=== PATIENT | male | born 1965 | race Caucasian/White ===

== ENCOUNTER 2017-01-11 21:07 | Inpatient (IN) | payer OTHER ==
[~2017-01-11] VITALS: Ht 177.8 cm; Wt 74.8 kg
[~2017-01-11 21:07] MED LIST: Z.0.NO CURRENT MEDS
[2017-01-11 21:37] VITALS: BP 139/90; PULSE 89; RESP 16; TEMP 98.5; O2SAT 100
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
[2017-01-11] MEDS ORDERED: TETANUS/DIPHTHERIA TOXOID ADULT 0.5 ML VIAL IM ONE (21:45)
[2017-01-11] MEDS ORDERED: IBUP400T20 PO (22:18)
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
[2017-01-11 23:00] VITALS: O2SAT 100
[2017-01-11] MEDS ORDERED: PROPOFOL 200 MG/20 ML AMP IV ONE (23:00)
[2017-01-11 23:10] VITALS: BP 142/86; PULSE 77; RESP 18; O2SAT 99
[2017-01-12] MEDS ORDERED: SODIUM CHLOR 0.9% 1000 ML INJ 1,000 ML IV SCH ×2 (00:01→00:54)
--- NOTE | 2017-01-12 00:03 | RADRPT ---
EXAM DATE/TIME: 01/11/2017 23:41 [facility] COMPARISON: HAND LEFT COMPLETE ([id number]), January 11, 2017, 22:16. INDICATIONS : Post reduction MEDICAL HISTORY : None. SURGICAL HISTORY : None. ENCOUNTER: Initial ACUITY: 1 day PAIN SCORE: 10/10 LOCATION: Left wrist FINDINGS: There is improvement in alignment of the previously described distal radius fracture and also improve ment in alignment at the wrist joint. Ulna styloid avulsion fracture again noted. CONCLUSION: 1. Improvement in alignment of previous fracture dislocation at the distal radius with overlying cast material present. Partice Gonzalez MD on January 12, 2017 at 0:00 Board Certified Radiologist. This report was verified electronically.
[2017-01-12 01:00] VITALS: BP 124/81; PULSE 77; RESP 16; O2SAT 98
[2017-01-12] MEDS ORDERED: NALOXONE HCL 0.4 MG/ML AMP IV PRN (01:00)
[2017-01-12] MEDS ORDERED: MAGNESIUM HYDROXIDE SUSP 30 ML CUP PO PRN ×2 (01:00→13:30)
[2017-01-12] MEDS ORDERED: DOCUSATE SODIUM 100 MG CAP PO SCH (01:00)
[2017-01-12] MEDS ORDERED: ACETAMINOPHEN/HYDROcodone 325 MG/5 MG TAB PO PRN (01:00)
[2017-01-12] MEDS ORDERED: SODIUM CHLORIDE 0.9% FLUSH 10 ML FLUSH IV FLUSH PRN (01:00)
[2017-01-12] MEDS ORDERED: MORPHINE SULFATE 4 MG/ML INJ IV PRN (01:00)
[2017-01-12] MEDS ORDERED: ACETAMINOPHEN 325 MG TAB PO PRN (01:00)
[2017-01-12] MEDS ORDERED: BISACODYL 10 MG SUPP RECTAL PRN (01:00)
[2017-01-12] MEDS ORDERED: ONDANSETRON HCL 4 MG/2 ML VIAL IVP PRN ×2 (01:00→13:30)
[2017-01-12] MEDS ORDERED: SENNOSIDES 8.6 MG TAB PO PRN (01:00)
[2017-01-12] MEDS ORDERED: ACETAMINOPHEN/HYDROcodone 325 MG/10 MG TAB PO PRN ×3 (01:00→13:30)
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
[2017-01-12 02:50] VITALS: BP 119/69; PULSE 73; RESP 20; TEMP 99.1; O2SAT 98
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
[2017-01-12 07:25] VITALS: BP 119/71; PULSE 73; RESP 17; TEMP 99.2; O2SAT 94
[2017-01-12] MEDS ORDERED: SODIUM CHLORIDE 0.9% FLUSH 10 ML FLUSH IV FLUSH SCH (09:00)
[2017-01-12] MEDS ORDERED: LACTATED RINGER'S 1000 ML INJ 1,000 ML IV ONE (12:00)
[2017-01-12] MEDS ORDERED: ePHEDrine/NS 25 MG/5 ML SYR IV ONE (12:00)
[2017-01-12] MEDS ORDERED: PROPOFOL 200 MG/20 ML AMP IV ONE (12:00)
[2017-01-12] MEDS ORDERED: ceFAZolin 2 GM PREMIX 50 ML ONE (12:06)
[2017-01-12] MEDS ORDERED: GENTAMICIN SULFATE 80 MG/2 ML VIAL ONE (12:06)
[2017-01-12] MEDS ORDERED: MIDAZOLAM HCL 2 MG/2 ML VIAL ONE (12:16)
[2017-01-12] MEDS ORDERED: MORPHINE SULFATE 8 MG/ML INJ IV PUSH PRN (13:30)
[2017-01-12] MEDS ORDERED: SODIUM CHLORIDE 0.9% FLUSH 5 ML FLUSH IVF PRN (13:30)
[2017-01-12] MEDS ORDERED: diphenhydrAMINE HCL 25 MG CAP PO PRN (13:30)
[2017-01-12] MEDS ORDERED: ZOLPIDEM TARTRATE 5 MG TAB PO PRN (13:30)
[2017-01-12] MEDS ORDERED: Post-op Orders (for Pharmacy) MISC XX ONE (13:30)
[2017-01-12] MEDS ORDERED: HYDR-3366 PO (13:32)
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
[2017-01-12] MEDS ORDERED: *morphine SULFATE 8 MG/ML PERIprocedure ONLY ONE ×2 (13:55→14:10)
[2017-01-12] MEDS ORDERED: ACETAMINOPHEN 1000 MG/100 ML VIAL IV ONE (13:55)
[2017-01-12] MEDS ORDERED: *ONDANSETRON 4 MG VIAL PERIprocedural Use ONLY ONE (13:55)
[2017-01-12] MEDS ORDERED: DO NOT ADM ANY ANTICOAGULANT DRUGS PRN (13:57)
[2017-01-12] MEDS ORDERED: fentaNYL CITRATE 250 MCG/5 ML AMP ONE (13:59)
--- NOTE | 2017-01-12 14:51 | RADRPT ---
EXAM DATE/TIME: 01/12/2017 13:18 [place] COMPARISON: No previous studies available for comparison. INDICATIONS : ORIF left wrist. MEDICAL HISTORY : None. SURGICAL HISTORY : None. ENCOUNTER: Subsequent ACUITY: 2 days PAIN SCORE: Non-responsive. LOCATION: Left wrist. FINDINGS: 2 intraoperative spot images of the wrist demonstrating volar internal fixation plate and multiple tr ansfixing screws. Alignment is near anatomic. CONCLUSION: Intraoperative images showing distal radius fracture with internal fixation hardware in place. Kameron Lindquist MD on January 12, 2017 at 14:48 Board Certified Radiologist. This report was verified electronically.
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
[2017-01-12] MEDS: LACTATED RINGER'S 1000 ML INJ 1,000 ML IV SCH ×2 (17:06→19:45)
[2017-01-12] MEDS: DOCUSATE SODIUM 50 MG/SENNA 8.6 MG TAB PO SCH (19:48)
[2017-01-12] MEDS: SODIUM CHLORIDE 0.9% FLUSH 5 ML FLUSH IVF SCH (19:48)
[2017-01-12 19:53] VITALS: BP 120/77; PULSE 62; RESP 18; TEMP 98.1; O2SAT 100
[2017-01-12 21:15] VITALS: O2SAT 100
[2017-01-13 00:40] VITALS: BP 109/67; PULSE 70; RESP 16; TEMP 99.4; O2SAT 95
[2017-01-13 04:00] VITALS: BP 114/66; PULSE 69; RESP 16; TEMP 99.7; O2SAT 98
[2017-01-13 06:41] LABS: AUTOMATED NEUTROPHIL # 5.8 TH/MM3 (1.8-7.7); BASOPHIL % 0.4 % (0.0-2.0); EOSINOPHIL # 0.1 TH/MM3 (0-0.4); EOSINOPHIL % 1.6 % (0.0-4.0); HEMATOCRIT 35.9 % (39.0-51.0); HEMO FLAGS DIFF FINAL; LYMPH % 15.9 % (9.0-44.0); LYMPHOCYTE # 1.3 TH/MM3 (1.0-4.8); MEAN CELL VOLUME 85.5 FL (80.0-100.0); MEAN CORPUSCULAR HEMOGLOBIN 29.5 PG (27.0-34.0); MEAN CORPUSCULAR HGB CONC 34.5 % (32.0-36.0); MONO % 9.7 % (0.0-8.0); NEUT % 72.4 % (16.0-70.0); PLATELET COUNT 185 TH/MM3 (150-450); RED CELL DISTRIBUTION WIDTH 13.7 % (11.6-17.2); WHITE BLOOD COUNT 8.1 TH/MM3 (4.0-11.0)
[2017-01-13 07:03] LABS: ALKALINE PHOSPHATASE 53 U/L (45-117); ALT (GPT) 17 U/L (12-78); ANION GAP 9 MEQ/L (5-15); AST (GOT) 14 U/L (15-37); BICARBONATE 26.2 MEQ/L (21.0-32.0); BLOOD UREA NITROGEN 12 MG/DL (7-18); CHLORIDE 105 MEQ/L (98-107); GLOMERULAR FILTRATION RATE 74 ML/MIN (>89); POTASSIUM 3.8 MEQ/L (3.5-5.1); SODIUM (NA) 140 MEQ/L (136-145); TOTAL BILIRUBIN ADULT 0.5 MG/DL (0.2-1.0)
--- NOTE | 2017-01-13 07:39 | PD.ORT.PN ---
Subjective Subjective Remarks Moderate wrist and knee pain but well controlled on po meds. States 'he doesn' t need much' for pain. Left knee brace feels 'cumbersome'. Left hand is swollen. Sensation ok. No other complaints. Prefers to go home today. No CP or SOB. Objective Vitals Vital Signs Date Time Temp Pulse Resp B/P Pulse Ox O2 Delivery O2 Flow Rate FiO2 01/13/17 04:00 99.7 69 16 114/66 98 01/13/17 00:40 99.4 70 16 109/67 95 01/12/17 21:15 100 01/12/17 19:53 98.1 62 18 120/77 100 01/12/17 17:15 98.0 62 15 113/73 95 Nasal Cannula 3 01/12/17 16:45 59 16 118/69 96 Nasal Cannula 3 01/12/17 16:15 54 16 149/89 98 Nasal Cannula 3 01/12/17 15:45 64 16 126/71 94 Nasal Cannula 3 01/12/17 15:15 64 16 121/70 94 Nasal Cannula 3 01/12/17 14:45 65 16 140/83 96 Nasal Cannula 3 01/12/17 14:30 71 15 141/80 96 Nasal Cannula 3 01/12/17 14:15 79 15 129/78 96 Nasal Cannula 3 01/12/17 14:00 67 15 150/81 96 Nasal Cannula 3 01/12/17 13:50 98.6 77 15 129/78 96 Nasal Cannula 3 I/O 01/12/17 01/12/17 01/12/17 01/13/17 01/13/17 01/13/17 07:00 15:00 23:00 07:00 15:00 23:00 Intake Total 1000 ml 965 ml 1395 ml Output Total 5 ml 700 ml 1000 ml Balance 995 ml 265 ml 395 ml Intake Oral 240 ml 600 ml IV Total 725 ml 795 ml Other 1000 ml Output Urine Total 0 ml 700 ml 1000 ml Estimated Blood Loss 5 ml # Voids 1 Result Diagram: 01/13/17 0608 01/13/17 0608 Objective Remarks Laying in bed, CKS left leg NAD VSS LUE Dressing/splint c/d/i, mild swelling fingers, no erythema Wiggles fingers freely, electroencephalographic technician diminished but intact +nvi - radial pulse 2/4 LLE Mild swelling, some tenderness lateral, full ROM not assessed +motor at, +sens distal, +nvi Assessment & Plan Ortho Post Op Day #: 4 Problem List: Assessment and Plan pod#1 s/p ORIF Left wrist Nonop, left knee contusion, internal derangement, shoulder contusion Ok to d/c home today. Continue splint left upper extremity. NonWBing. Sling for comfort. Continue splint left knee. Ok to remove when seated for comfort. WBing as tolerated. Conservative care for the shoulder F/U in 2-3 weeks for suture removal. [place] written for pain. Cora Resendiz Jan 13, 2017 07:39
[2017-01-13 08:00] VITALS: BP 117/69; PULSE 62; RESP 19; TEMP 99; O2SAT 98
[2017-01-13] MEDS: SODIUM CHLORIDE 0.9% FLUSH 5 ML FLUSH IVF SCH (09:00)
[2017-01-13] MEDS ORDERED: MULTIVITAMINS/MINERALS THERAPEUTIC TAB PO SCH (09:00)
[2017-01-13] MEDS: DOCUSATE SODIUM 50 MG/SENNA 8.6 MG TAB PO SCH (09:00)
[2017-01-13 12:00] VITALS: BP 113/73; PULSE 64; RESP 18; TEMP 99; O2SAT 98
--- NOTE | 2017-01-13 12:05 | HHI.PR ---
Subjective Remarks A shunt resting and that he is doing okay, cleared by ortho for discharge Objective Vitals Vital Signs Date Time Temp Pulse Resp B/P Pulse Ox O2 Delivery O2 Flow Rate FiO2 01/13/17 08:00 99.0 62 19 117/69 98 01/13/17 04:00 99.7 69 16 114/66 98 01/13/17 00:40 99.4 70 16 109/67 95 01/12/17 21:15 100 01/12/17 19:53 98.1 62 18 120/77 100 01/12/17 17:15 98.0 62 15 113/73 95 Nasal Cannula 3 01/12/17 16:45 59 16 118/69 96 Nasal Cannula 3 01/12/17 16:15 54 16 149/89 98 Nasal Cannula 3 01/12/17 15:45 64 16 126/71 94 Nasal Cannula 3 01/12/17 15:15 64 16 121/70 94 Nasal Cannula 3 01/12/17 14:45 65 16 140/83 96 Nasal Cannula 3 01/12/17 14:30 71 15 141/80 96 Nasal Cannula 3 01/12/17 14:15 79 15 129/78 96 Nasal Cannula 3 01/12/17 14:00 67 15 150/81 96 Nasal Cannula 3 01/12/17 13:50 98.6 77 15 129/78 96 Nasal Cannula 3 I/O 01/12/17 01/12/17 01/12/17 01/13/17 01/13/17 01/13/17 07:00 15:00 23:00 07:00 15:00 23:00 Intake Total 1000 ml 965 ml 1395 ml Output Total 5 ml 700 ml 1000 ml Balance 995 ml 265 ml 395 ml Intake Oral 240 ml 600 ml IV Total 725 ml 795 ml Other 1000 ml Output Urine Total 0 ml 700 ml 1000 ml Estimated Blood Loss 5 ml # Voids 1 Result Diagram: 01/13/17 0608 01/13/17 0608 Objective Remarks GENERAL: This is a well-nourished, well-developed patient, in no apparent distress. SKIN: No rashes, warm and dry HEAD: Atraumatic. Normocephalic. EYES: Pupils equal round and reactive. Extraocular motions intact. No scleral icterus. ENT: Nose without bleeding, or drainage, Airway patent. NECK: Trachea midline. Supple CARDIOVASCULAR: Regular rate and rhythm without murmurs, gallops, or rubs. RESPIRATORY: Fair air entry bilaterally. No wheezes, rales, or rhonchi. GASTROINTESTINAL: Abdomen soft, non-tender, nondistended. Positive bowel sounds MUSCULOSKELETAL: LUE Dressing/splint c/d/i, mild swelling fingers, no erythema Wiggles fingers freely, kiln burner diminished but intact +nvi - radial pulse 2/4 LLEMild swelling, some tenderness lateral, full ROM not assessed +motor at, +sens distal, +nvi NEUROLOGICAL: Awake and alert. Moves all extremity. Normal speech.no focal neurological deficit A/P Assessment and Plan Left wrist fracture, Left shoulder, left knee injury. Imaging negative for acute process. Status [place] Narcotics for pain control. Orthopedics consult pending. Appreciate assistance. pod#1 s/p ORIF Left wrist Nonop, left knee contusion, internal derangement, shoulder contusion Ok to d/c home today per ortho Continue splint left upper extremity. NonWBing. Sling for comfort. Continue splint left knee. Ok to remove when seated for comfort. WBing as tolerated. Conservative care for the shoulder F/U in 2-3 weeks for suture removal. Subgaleal hematoma. does not appear to have progressed. Prophylaxis. SCDs. Anticoagulation As per surgical service. She was all Discharge Planning Discharge patient to home Condition on discharge: Improved Regular Diet as tolerated Ad Aminah activity Rx written: See [facility] Follow-up with primary care physician Corie Yepez MD Jan 13, 2017 12:05
[2017-01-13] MEDS: LACTATED RINGER'S 1000 ML INJ 1,000 ML IV SCH (12:47)
== END 2017-01-13 14:21 | disposition home or self-care (01) | DRG 512 ==
LOC: NEPC 21:07 → NEDA 01-12 00:26 → NEPFCDU 01-12 02:46 → N06B 01-12 11:45
PROVIDERS: ADMIT Hospitalist; ATTEND Hospitalist
PROC: 0PSJXZZ Reposition Left Radius, External Approach (ICD-10-PCS; 2017-01-11)
PROC: 0PSJ04Z Reposition Left Radius with Internal Fixation Device, Open Approach (ICD-10-PCS; principal; 2017-01-12 12:18)
DX: S52.542A Smith's fracture of left radius, initial encounter for closed fracture (principal); M23.92 Unspecified internal derangement of left knee; S40.012A Contusion of left shoulder, initial encounter; S00.03XA Contusion of scalp, initial encounter; V19.88XA Pedal cyclist (driver) (passenger) injured in other specified transport accidents, initial encounter; Y93.55 Activity, bike riding; Y92.39 Other specified sports and athletic area as the place of occurrence of the external cause
CPT/HCPCS: 25605; 70450; 71010; 72125; 73010; 73090; 73100; 73110; 73130; 73200; 73564; 76000; 80053; 85025; 85610; 90471; 90714; 94150; 99152; C1713; J0131; J0690; J1580; J2250; J2270; J2405; J3010; J7030; J7120